=== PATIENT | female | born 1975 | race Two or more races ===

== ENCOUNTER 2024-08-29 08:05 | Day surgery (SDC) | payer MEDICAID, SELFPAY ==
[2024-08-23 08:08] VITALS: BMI 45.6
[2024-08-23 09:00] LABS: Basophils # (Auto) 0.1 Thou/mm3 (0.0-0.2); Basophils % (Auto) 2 % (0-2.5); Eosinophils # (Auto) 0.4 Thou/mm3 (0.0-0.5); Eosinophils % (Auto) 6 % (0-10); Hematocrit 40.7 % (36.0-46.0); Hemoglobin 14.2 g/dL (12.0-16.0); Immature Granulocytes % (Auto) 0 % (0-0); Immature Granulocytes Auto 0.03 Thou/mm3 (0.00-0.00); Lymphocytes # (Auto) 1.6 Thou/mm3 (1.0-4.8); Lymphocytes % (Auto) 22 % (10-50); Mean Corpuscular HGB Conc 34.9 g/dl (31.0-37.0); Mean Corpuscular Hemoglobin 29.1 pg (25.0-35.0); Mean Corpuscular Volume 83 fL (80-100); Monocytes # (Auto) 0.6 Thou/mm3 (0.0-0.8); Monocytes % (Auto) 9 % (0-12); Neutrophils # (Auto) 4.2 Thou/mm3 (1.8-7.7); Neutrophils % (Auto) 60 % (37-80); Nucleated Red Blood Cell % 0 /100 WBC (0); Platelet Count 226 Thou/mm3 (140-440); RDW Standard Deviation 37.9 fL (36.4-46.3); Red Blood Count 4.88 Miln/mm3 (4.00-5.20); White Blood Count 6.9 Thou/mm3 (3.6-11.0)
[2024-08-23 09:09] LABS: Alanine Aminotransferase 51 U/L (10-49); Albumin, Serum 4.4 gm/dL (3.5-5.0); Albumin/Globulin Ratio 1.7 (1.2-2.2); Alkaline Phosphatase 95 U/L (46-116); Anion Gap 7 (7-16); Aspartate Amino Transferase 22 U/L (0-34); BUN/Creatinine Ratio 10 Ratio (12-20); Bilirubin,Total 0.5 mg/dL (0.3-1.2); Blood Urea Nitrogen 7 mg/dL (9-23); Calcium 9.2 mg/dL (8.3-10.6); Calcium (Corrected) 9.2 mg/dL (8.5-10.1); Carbon Dioxide 27.1 mMol/L (20.0-31.0); Chloride 104 mMol/L (98-107); Creatinine (Component) 0.7 mg/dL (0.6-1.3); Estimated Creatinine Clearance 105.7 mL/min (>60); Globulin 2.6 gm/dL (2.3-3.5); Glucose 120 mg/dL (74-106); Osmolality,Calculated 274 (275-295); Potassium 4.3 mMol/L (3.4-5.1); Sodium 138 mMol/L (136-145); eGFR > 60 See Note
[2024-08-23 09:17] LABS: Partial Thromboplastin Time 28.8 Seconds (22.0-36.0); Prothrombin Time 10.9 Seconds (9.0-12.2)
[2024-08-29] VITALS (8 sets, daily range): BP systolic 114–127; BP diastolic 56–92; PULSE 69–88; RESP 13–20; TEMP 36.3–36.7; O2SAT 98–100; BMI 42.7
[2024-08-29] MEDS: RINGERS LACTATED 1000 ML 1,000 ML 20 ML IV (09:09)
--- NOTE | 2024-08-29 12:29 | PD.SUROPNT ---
Date of Procedure 08/29/24 Pre Op Diagnosis Symptomatic varicose veins in both lower extremities Post Op Diagnosis Same as preop diagnosis Procedure Radiofrequency ablation of the greater saphenous veins in both lower extremities Varicose vein excisions in both lower extremities through 36 incisions in the right lower extremity in 21 incisions on the left Findings Successful closure of both of the greater saphenous veins with no evidence of thrombus in either the saphenofemoral junction or common femoral vein All varicose veins marked for the surgery were either successfully removed or disrupted Procedure Description With the patient standing in the preop area all varicose veins to be removed were carefully marked with a sharpie pen. The patient was then brought to the operating room and general anesthesia was induced. Both lower extremities were sterilely prepped and draped. A timeout was performed. The right leg vein ablation procedure was performed first by mapping out the course of the greater saphenous vein with ultrasound between the saphenofemoral junction and just above the knee on the medial thigh and both lower extremities. The right leg was done first by localizing the greater saphenous vein just above the knee on the medial thigh and accessing that vein with a 20-gauge needle followed by an 035 guidewire then a 7 Italian sheath introducer was placed. The ablation catheter was then brought to the field prepped and placed into the patient with the tip carefully positioned 3 to 5 cm distal to the saphenofemoral junction. Tumescent anesthesia was then instilled along the treatment length of the vein. Catheter tip position was once again checked to ensure it was distal to the saphenofemoral junction by 3 to 5 cm then under direct ultrasound compression the catheter was activated with 2 cycles proximally and 2 additional cycles down the leg. The saphenofemoral junction was then inspected and was found to have good flow compressibility and augmentation with no evidence of thrombus in the saphenofemoral junction or the common femoral vein. The catheter was then removed cleaned and placed into the left leg where the exact same procedure was performed. After that vein ablation was completed the saphenofemoral junction was inspected on the left and found to have good flow, augmentation and compressibility with no evidence of thrombus in the saphenofemoral junction or common femoral vein. At this point both of the excess tissues were removed and pressure was held hemostasis was obtained. The vein excision procedure was then performed next by making small skin nicks with a #11 blade and all marked areas then bluntly enlarging the incisions with a mosquito clamp and then sequentially excising the veins. All marked veins were either successfully removed or disrupted. 36 incisions were made in the right leg and 21 incisions on the left. When hemostasis was obtained the wounds were cleaned and Steri-Strips were applied to reapproximate the incisions. The leg was then wrapped with gauze Kerlix and an Arturo wrap. The patient woke up from anesthesia and was moved to recovery in stable condition Anesthesia other (Laryngeal mask anesthesia) Implants None Pathology / specimen Other (Varicose veins of both lower extremities) Estimated Blood Loss 100 Condition Stable Disposition PACU Surgeon Dylan Morse MD Surgical Staff Operation Date: 08/29/24 10:30 Case Staff Anesthesiologist: Matheus Vidal RN First Assistant: Maura Gordillo
--- NOTE | 2024-08-29 13:00 | SUR.PHASEI ---
pt arrived to PACU via gurney drowsy but arouses to voice, breathing unlabored, dressing to bilateral lower extremities clean, dry, and intact, pedal pulses present and equal bilaterally, circulation to bilateral toes WNL, report from [facility], [facility], and Dr Vidal.
--- NOTE | 2024-08-29 13:11 | SUR.PHASEI ---
1311: Pt. AAOx4, vitals stable, breathing unlabored, complaint of pain, will give pain medication, dressing to bilateral legs CDI, no active bleed noted, bilateral dorsalis pedis pulses strong and regular, cap refill to bilateral feet less than 3 seconds, pt. able to move bilateral legs, report received from Livia Cohen RN to resume care.
--- NOTE | 2024-08-29 13:11 | SUR.PHASEI ---
report to [facility]
[2024-08-29] MEDS: fentaNYL CIT INJ 50 mCg/ML AMP 2ML 25 MCG IV (13:22)
--- NOTE | 2024-08-29 14:05 | SUR.PHASEII ---
1405: Pt. AAOx4, vitals stable, breathing unlabored, no complaint of pain or nausea, dressing to bilateral legs CDI, no active bleed noted, bilateral dorsalis pedis pulses strong and regular, cap refill to bilateral feet less than 3 seconds, pt. able to move bilateral legs, pt. tolerated sips of water well, pt. ambulated to wheelchair with steady gait and no assist, no complications. Gave discharge instructions to the pt. and her ride using asl interpreter, both verbalized understanding and had no further questions. Pt. left with all personal belongings.
== END 2024-08-29 14:05 | disposition home or self-care (01) ==
PROVIDERS: Anesthesiology; PCP Family Medicine; Referring Provider Surgery Vascular Surgery; Visit Provider Surgery Vascular Surgery
PROC: (CPT 36475; principal; 2024-08-29 10:30)
DX: I83.813 Varicose veins of bilateral lower extremities with pain (principal)
CPT/HCPCS: 36475; 37766; 36415; 80053; 85025; 85610; 85730; A4217; C1888; C1894; J0461; J0690; J2250; J2704; J3010; J7050; J7120